=== PATIENT | female | born 1980 ===

== ENCOUNTER 2018-04-05 11:32 | Inpatient (IN) | payer OTHER, SELFPAY ==
[2018-04-05 11:37] VITALS: BMI 24.6
[2018-04-05] MEDS ORDERED: Morphine 4 mg/ml ISec IVP STA ×2 (12:04→14:23)
[2018-04-05] MEDS: Sodium Chloride 0.9% 1,000 ML IV SCH ×2 (12:21→18:08)
[2018-04-05 12:22] LABS: BASO # 0.01 K/mm3 (0.0-2.0); BASO % 0.1 % (0.0-3.0); GRAN # 13.21 (1.4-6.5); GRAN % 90.5 % (50.0-68.0); HEMOGLOBIN 14.9 g/dL (12.0-16.0); LYMPH # 0.9 (1.2-3.4); LYMPH % 6.2 % (22.0-35.0); MEAN CELL VOLUME 97.7 fl (80.0-105.0); MEAN CORPUSCULAR HEMOGLOBIN 34.7 pg (25.0-35.0); MEAN CORPUSCULAR HGB CONC 35.5 g/dl (31.0-37.0); MEAN PLATELET VOLUME 9.7 fl (7.0-11.0); MONO # 0.5 (0.1-0.6); MONO % 3.2 % (1.0-6.0); PLATELET COUNT 247 10^3/uL (120.0-450.0); RED CELL DISTRIBUTION WIDTH 13.1 % (11.5-14.5); WHITE BLOOD COUNT 14.6 10^3/ul (4.5-11.0)
--- NOTE | 2018-04-05 12:24 | ED PDOC ---
Arrival/HPI - General Chief Complaint: Abdominal Pain Time Seen by Provider: 04/05/18 12:02 Historian: Patient, Family (Daughter translated for patient ) - History of Present Illness Narrative History of Present Illness (Text): 04/05/18 12:03 38 year old female, with past medical history of appendectomy, presents to the emergency department accompanied by family with severe epigastric pain, vomiting , and diarrhea, since last night. Daughter is at bedside translating. Patient states worsening symptoms with radiation of pain throughout abdomen when vomiting. Patient states multiple episodes of vomiting and diarrhea since 1am this morning. Patient denies any headache, dizziness, fever, sweats, shortness of breath, cough, chest pain, or any other complaints. Time/Duration: 24 hours (Pain began last night) Symptom Onset: Gradual Symptom Course: Unchanged Quality: Aching Severity Level: Moderate Activities at Onset: Light Context: Home Past Medical History - Provider Review Nursing Documentation Reviewed: Yes - Infectious Disease Hx of Infectious Diseases: None - Psychiatric Hx Substance Use: No - Surgical History Hx Appendectomy: Yes Hx Section: Yes Family/Social History - Physician Review Nursing Documentation Reviewed: Yes Family/Social History: No Known Family HX Smoking Status: Never Smoked Hx Alcohol Use: No Hx Substance Use: No Allergies/Home Meds Allergies/Adverse Reactions: Allergies No Known Allergies Allergy (Verified 04/05/18 11:37) Home Medications: Home Meds Medication Instructions Recorded Confirmed No Known Home Med 04/05/18 04/05/18 Review of Systems - Physician Review All systems were reviewed & negative as marked: Yes - Review of Systems Constitutional: absent: Fevers, Night Sweats Respiratory: absent: SOB, Cough Cardiovascular: absent: Chest Pain Gastrointestinal: Abdominal Pain (Epigastric abdominal pain), Diarrhea, Vomiting (Multiple episodes since last night) Neurological: absent: Headache, Dizziness Physical Exam - Physical Exam Narrative Physical Exam (Text): 04/05/18 12:03 Gen: VS reviewed, alert, well developed, well nourished, nontoxic, moderate to severe distress ENT: normal pharynx Eye: EOMI, PERRL Neck: no JVD, supple, no adenopathy CV: regular rate, regular rhythm, no rubs,no murmur, no gallops, S1, S2, pulses equal and strong Pulm: no distress, clear to auscultation, no wheeze, no rhonchi, breath sounds equal, no rales Abd: severe epigastric tenderness, with guarding, no rebound, no rigidity Ext: no edema Skin: good color, no rash, no cyanosis Psych: responds appropriately to questions, normal affect Neuro: oriented x3, CN2-12 intact grossly, motor intact, sensation intact Vital Signs Reviewed: Yes Vital Signs Temp Pulse Pulse Resp BP Pulse Ox 04/05/18 16:11 97.7 F 66 66 18 147/80 04/05/18 15:00 98 F 78 18 136/79 98 04/05/18 13:32 66 18 147/80 98 04/05/18 11:32 97.7 F 70 18 129/77 99 Temperature: Afebrile Blood Pressure: Normal Pulse: Regular Respiratory Rate: Normal Appearance: Positive for: Well-Appearing, Non-Toxic, Comfortable Pain Distress: None Mental Status: Positive for: Alert and Oriented X 3 Medical Decision Making ED Course and Treatment: 04/05/18 12:49 Impression: 38 year old female presents to the emergency department with severe epigastric abdominal pain. Plan: -- EKG -- Labs -- US of gallbladder and pancreas -- Morphine -- Zofran -- Reassess and disposition Progress Notes: 04/05/18 13:34 patient seen for acute severe epigastric pain, will initiate workup for biliary colic, if US negative will follow up with CT 04/05/18 14:32 case discussed with medical surgical tech and will see pt in consultation 04/05/18 14:[address] Mitchell, who is aware and agrees with Emergency Department management plan, accepts patient under her service. - Lab Interpretations Lab Results: 04/05/18 12:00 04/05/18 12:00 Lab Results 04/05/18 12:00: Sodium 144, Potassium 3.7, Chloride 106, Carbon Dioxide 22, Anion Gap 20, BUN 14, Creatinine 0.5 L, Est GFR ( Amer) > 60, Est GFR ( Non-Af Amer) > 60, Random Glucose 131 H, Calcium 9.4, Total Bilirubin 0.9, AST 27, ALT 34, Alkaline Phosphatase 62, Total Protein 8.4 H, Albumin 4.7, Globulin 3.7, Albumin/Globulin Ratio 1.2, Lipase 63 04/05/18 12:00: WBC 14.6 H, RBC 4.30, Hgb 14.9, Hct 42.0, MCV 97.7, MCH 34.7, MCHC 35.5, RDW 13.1, Plt Count 247, MPV 9.7, Gran % 90.5 H, Lymph % (Auto) 6.2 L , [place] % (Auto) 3.2, Eos % (Auto) 0.0 L, Baso % (Auto) 0.1, Gran # 13.21 H, Lymph # (Auto) 0.9 L, [place] # (Auto) 0.5, Eos # (Auto) 0.0, Baso # (Auto) 0.01, Neutrophils % (Manual) 92 H, Lymphocytes % (Manual) 6 L, Monocytes % (Manual) 2 , Platelet Evaluation Normal, Anisocytosis (manual) Slight - RAD Interpretation Narrative RAD Interpretations (Text): 04/05/18 14:14 US of gallbladder and pancreas reviewed by radiologist, shows: Cholelithiasis, presumptive evidence for acute cholecystitis. Radiology Orders: 04/05/18 12:04 GALLBLADDER & PANCREAS [US] Stat Medical Examiner: Radiologist - EKG Interpretation EKG Interpretation (Text): 04/05/18 15:15 sinus rhythm at 70 bpm, nml qrs, nml axis, no acute sttw abn Interpreted by ED Physician: Yes - Medication Orders Current Medication Orders: Sodium Chloride (Sodium Chloride 0.9%) 1,000 mls @ 150 mls/hr IV .Q6H40M ESHA Last Admin: 04/05/18 18:08 Dose: 150 mls/hr eMAR Start Stop Document 04/05/18 18:08 LEYDA (Rec: 04/05/18 18:08 LEYDA [id number]) Intravenous Solution Start Date 04/05/18 Start Time 18:08 Cefoxitin Sodium 1 gm/ Sodium (Chloride) 100 mls @ 100 mls/hr IV Q8H ESHA PRN Reason: Protocol Stop: 04/08/18 22:01 Metronidazole (Flagyl) 500 mg in 100 mls @ 100 mls/hr IVPB Q8 ESHA PRN Reason: Protocol Stop: 04/08/18 22:01 Lactated Ringer's (Lactated Ringer's) 1,000 mls @ 100 mls/hr IV .Q10H [facility] Stop: 04/08/18 15:16 Last Admin: 04/05/18 15:21 Dose: 100 mls/hr eMAR Start Stop Document 04/05/18 15:21 EWO (Rec: 04/05/18 15:21 EWO [id number]) Intravenous Solution Start Date 04/05/18 Start Time 15:21 Morphine Sulfate (Morphine) 4 mg IVP Q4H PRN PRN Reason: Pain, moderate (4-7) Last Admin: 04/05/18 20:14 Dose: 4 mg MAR Pain Assessment Document 04/05/18 20:14 [facility] (Rec: 04/05/18 20:15 [id number]) Pain Reassessment Is this a pain reassessment? No Sleep Is patient sleeping during reassessment? No Presence of Pain Presence of Pain Yes Pain Scale Used Pain Scale Used Numeric Location Upper or Lower Upper Pain Location Body Site Abdomen Description Description Intermittent Intensity of Pain at present 7 Pain Behavior Facial Grimacing Alleviating Factors/Management Medication Techniques Alleviating Factors Medication IVP Administration Document 04/05/18 20:14 [facility] (Rec: 04/05/18 20:15 [id number]) Charges for Administration # of IVP Administrations 1 Ondansetron HCl (Zofran Inj) 4 mg IVP Q4H PRN PRN Reason: Nausea/Vomiting Last Admin: 04/05/18 20:15 Dose: 4 mg IVP Administration Document 04/05/18 20:15 [facility] (Rec: 04/05/18 20:15 [id number]) Charges for Administration # of IVP Administrations 1 Discontinued Medications Ampicillin Sodium/Sulbactam (Sodium 3 gm/ Sodium Chloride) 100 mls @ 100 mls/ hr IVPB STAT STA PRN Reason: Protocol Stop: 04/05/18 15:14 Last Admin: 04/05/18 15:21 Dose: 100 mls/hr eMAR Start Stop Document 04/05/18 15:21 EWO (Rec: 04/05/18 15:21 EWO [id number]) Intravenous Solution Start Date 04/05/18 Start Time 15:21 End Date 04/05/18 End time 16:21 Total Infusion Time 60 Morphine Sulfate (Morphine) 4 mg IVP STAT STA Stop: 04/05/18 12:05 Last Admin: 04/05/18 12:22 Dose: 4 mg MAR Pain Assessment Document 04/05/18 12:22 EWO (Rec: 04/05/18 12:22 EWO [id number]) Pain Reassessment Is this a pain reassessment? No Sleep Is patient sleeping during reassessment? No Presence of Pain Presence of Pain Yes Pain Scale Used Pain Scale Used Numeric Location Pain Location Body Site Abdomen Description Description Constant Intensity of Pain at present 7 IVP Administration Document 04/05/18 12:22 EWO (Rec: 04/05/18 12:22 EWO [id number]) Charges for Administration # of IVP Administrations 1 Re-Assess: [facility] Pain Assessment Document 04/05/18 13:22 EWO (Rec: 04/05/18 15:22 EWO [id number]) Pain Reassessment Is this a pain reassessment? Yes Sleep Is patient sleeping during reassessment? No Presence of Pain Presence of Pain Yes Location Pain Location Body Site Abdomen Description Description Intermittent Intensity of Pain at present 6 Morphine Sulfate (Morphine) 4 mg IVP STAT STA Stop: 04/05/18 14:24 Last Admin: 04/05/18 15:20 Dose: 4 mg [facility] Pain Assessment Document 04/05/18 15:20 EWO (Rec: 04/05/18 15:21 EWO [id number]) Pain Reassessment Is this a pain reassessment? Yes Sleep Is patient sleeping during reassessment? No Presence of Pain Presence of Pain Yes Location Pain Location Body Site Abdomen Description Description Intermittent Intensity of Pain at present 6 IVP Administration Document 04/05/18 15:20 EWO (Rec: 04/05/18 15:21 O [id number]) Charges for Administration # of IVP Administrations 2 Ondansetron HCl (Zofran Inj) 4 mg IVP STAT STA Stop: 04/05/18 12:16 Last Admin: 04/05/18 12:22 Dose: 4 mg IVP Administration Document 04/05/18 12:22 EWO (Rec: 04/05/18 12:22 [facility] [id number]) Charges for Administration # of IVP Administrations 1 Pneumococcal Polyvalent Vaccine (Pneumovax 23 Vaccine) 0.5 ml IM .ONCE ONE Stop: 04/05/18 16:26 - Scribe Statement The provider has reviewed the documentation as recorded by the Scribbruce Harmon with [facility] All medical record entries made by the Scribe were at my direction and personally dictated by me. I have reviewed the chart and agree that the record accurately reflects my personal performance of the history, physical exam, medical decision making, and the department course for this patient. I have also personally directed, reviewed, and agree with the discharge instructions and disposition. Disposition/Present on Arrival - Present on Arrival Any Indicators Present on Arrival: No History of DVT/PE: No History of Uncontrolled Diabetes: No Urinary Catheter: No History of Decub. Ulcer: No History Surgical Site Infection Following: None - Disposition Have Diagnosis and Disposition been Completed?: Yes Diagnosis: Cholecystitis, acute with cholelithiasis Disposition: HOSPITALIZED Disposition Time: 14:41 Patient Plan: Admission Patient Problems: Current Active Problems Problem Status Onset Cholecystitis, acute with cholelithiasis Acute Condition: GOOD
[2018-04-05 12:26] LABS: ALB/GLOB RATIO 1.2 (1.1-1.8); ALBUMIN 4.7 g/dL (3.0-4.8); ALT/SGPT 34 U/L (7-56); AST/SGOT 27 U/L (14-36); BLOOD UREA NITROGEN 14 mg/dL (7-21); CALCIUM 9.4 mg/dL (8.4-10.5); GFR AFRICAN-AMERICAN > 60; GFR NON-AFRICAN AMERICAN > 60; LIPASE 63 U/L (23-300)
[2018-04-05 13:38] LABS: NEUTROPHIL 92 % (50.0-70.0)
[2018-04-05 13:39] LABS: LYMPHOCYTE 6 % (22.0-35.0); MONOCYTE 2 % (1.0-6.0); PLATELET ESTIMATE NORMAL (NORMAL)
[2018-04-05 13:40] LABS: ANISOCYTOSIS SLIGHT
--- NOTE | 2018-04-05 14:00 | US ---
Date of service: 04/05/2018 HISTORY: pain, ?gallstones COMPARISON: None. TECHNIQUE: Sonographic evaluation of the right upper quadrant of the abdomen. FINDINGS: LIVER: Measures 13.3 cm in length. Patent portal vein. Portal venous flow: Hepatopetal. Unremarkable echogenicity of the liver parenchyma. No mass. No intrahepatic bile duct dilatation. GALLBLADDER: Multiple gallstones including a large stone lodged in the neck of the gallbladder. Positive sonographic Bourgeois's sign. Trace pericholecystic fluid. COMMON BILE DUCT: Measures 2.7 mm. No stones. No dilatation. PANCREAS: Unremarkable as visualized. No mass. No ductal dilatation. RIGHT KIDNEY: Measures 4.7 x 10.6 cm in length. Normal echogenicity. No calculus, mass, or hydronephrosis. AORTA: No aneurysmal dilatation. IVC: Unremarkable. OTHER FINDINGS: None . IMPRESSION: Cholelithiasis, presumptive evidence for acute cholecystitis.
[2018-04-05] MEDS ORDERED: Morphine 2 mg/ml ISec IVP PRN (15:07)
[2018-04-05] MEDS: Lactated Ringer's 1,000 ML IV SCH (15:21)
--- NOTE | 2018-04-05 15:21 | CP.PCM.HP ---
History of Present Illness - History of Present Illness History of Present Illness: Surgery: Dr. Mitchell Pt is a 38F with no significant PMHx who presents to [facility] with complaints of abdominal pain & N/V x 1 day. Pt states she has had this pain on/off for the past year, however it has never been this bad in the past. Pt states this episode started last night with epigastric pain associated with several episodes of non-bloody vomiting. Pt denies any exacerbating/alleviating factors. Admits to subjective fevers/chills at home. In the ER, pt had an US of her RUQ which shows GB with multiple stones, pericholecystic fluid & + sonographic quevedo's sign, consistent with acute cholecystitis. Surgery called to evaluate. Currently, pt is resting comfortably in bed. States her pain is still the same but N/V has improved. She denies chest pain or SOB. PMHx: denies PSHx: appendectomy, SocialHx: denies smoking, EtOH/drugs NKDA Present on Admission - Present on Admission Any Indicators Present on Admission: No Review of Systems - Review of Systems All systems: reviewed and no additional remarkable complaints except (as per HPI ) Past Patient History - Infectious Disease Hx of Infectious Diseases: None - Past Social History Smoking Status: Never Smoked - PSYCHIATRIC Hx Substance Use: No - SURGICAL HISTORY Hx Appendectomy: Yes Hx Section: Yes - ANESTHESIA Hx Anesthesia: Yes Hx Anesthesia Reactions: No Meds Allergies/Adverse Reactions: Allergies Allergy/AdvReac Type Severity Reaction Status Date / Time No Known Allergies Allergy Verified 04/05/18 11:37 Physical Exam - Constitutional Appears: Well, No Acute Distress - Head Exam Head Exam: ATRAUMATIC, NORMOCEPHALIC - Eye Exam Eye Exam: Normal appearance - ENT Exam ENT Exam: Mucous Membranes Moist - Respiratory Exam Respiratory Exam: NORMAL BREATHING PATTERN - Cardiovascular Exam Cardiovascular Exam: RRR - GI/Abdominal Exam GI & Abdominal Exam: Soft, Tenderness (epigastrium ). absent: Distended, Guarding, Rebound Results - Vital Signs Recent Vital Signs: Last Vital Signs Temp 97.7 F 04/05/18 11:32 Pulse 66 04/05/18 13:32 Resp 18 04/05/18 13:32 BP 147/80 04/05/18 13:32 Pulse Ox 98 04/05/18 13:32 - Labs Result Diagrams: 04/05/18 12:00 04/05/18 12:00 - Imaging and Cardiology US - abdomen Status: Image reviewed by me, Report reviewed by me Assessment & Plan - Assessment and Plan (Free Text) Assessment: 38F with acute cholecystitis Plan: - admit to the hospital - IVF & IV ABX - CLD ok, will make NPO prior to OR - d/w Dr. Stephen Johnson
[2018-04-05] MEDS ORDERED: Pneumococcal 23-Valent Vaccine IM ONE (16:25)
[2018-04-05] MEDS: Morphine 4 mg/ml ISec IVP PRN (20:14)
[2018-04-05] MEDS: metroNIDAZOLE IV 500 mg/100 ml 500 MG/100 ML BAG IVPB SCH (21:28)
[2018-04-05] MEDS: cefOXitin Sodium 1 GM in Sodium Chloride 0.9% 100 ML IV SCH (23:17)
[2018-04-06] MEDS: metroNIDAZOLE IV 500 mg/100 ml 500 MG/100 ML BAG IVPB SCH ×3 (06:13→21:15)
[2018-04-06 07:02] LABS: BASO # 0.02 K/mm3 (0.0-2.0); BASO % 0.2 % (0.0-3.0); EOS # 0.1 (0.0-0.7); EOS % 0.8 % (1.5-5.0); GRAN # 7.53 (1.4-6.5); GRAN % 74.7 % (50.0-68.0); HEMOGLOBIN 12.7 g/dL (12.0-16.0); LYMPH # 1.4 (1.2-3.4); LYMPH % 14.2 % (22.0-35.0); MEAN CELL VOLUME 98.4 fl (80.0-105.0); MEAN CORPUSCULAR HGB CONC 34.5 g/dl (31.0-37.0); MEAN PLATELET VOLUME 9.7 fl (7.0-11.0); MONO % 10.1 % (1.0-6.0); RBC 3.74 10^6/uL (3.5-6.1); RED CELL DISTRIBUTION WIDTH 13.2 % (11.5-14.5); WHITE BLOOD COUNT 10.1 10^3/ul (4.5-11.0)
[2018-04-06] MEDS: cefOXitin Sodium 1 GM in Sodium Chloride 0.9% 100 ML IV SCH ×3 (07:03→21:15)
--- NOTE | 2018-04-06 07:13 | CP.PCM.PN ---
Subjective - Date & Time of Evaluation Date of Evaluation: 04/06/18 Time of Evaluation: 06:26 - Subjective Subjective: Surgery: Dr. Mitchell Pt seen and examined. No acute overnight events. Pt states abdominal pain has improved since admission but still present. Admits to one episode of vomiting overnight. Denies F/C. Objective - Vital Signs/Intake and Output Vital Signs (last 24 hours): Temp Pulse Resp BP Pulse Ox 97.5 F L 59 L 18 105/73 97 04/05/18 22:14 04/05/18 22:14 04/05/18 22:14 04/05/18 22:14 04/05/18 22:14 Intake and Output: 04/05/18 04/06/18 18:59 06:59 Intake Total 420 Balance 420 - Medications Medications: Current Medications Sodium Chloride (Sodium Chloride 0.9%) 1,000 mls @ 150 mls/hr IV .Q6H40M ESHA Last Admin: 04/05/18 18:08 Dose: 150 mls/hr Cefoxitin Sodium 1 gm/ Sodium (Chloride) 100 mls @ 100 mls/hr IV Q8H ESHA PRN Reason: Protocol Stop: 04/08/18 22:01 Last Admin: 04/05/18 23:17 Dose: 100 mls/hr Metronidazole (Flagyl) 500 mg in 100 mls @ 100 mls/hr IVPB Q8 ESHA PRN Reason: Protocol Stop: 04/08/18 22:01 Last Admin: 04/06/18 06:13 Dose: 100 mls/hr Lactated Ringer's (Lactated Ringer's) 1,000 mls @ 100 mls/hr IV .Q10H [facility] Stop: 04/08/18 15:16 Last Admin: 04/05/18 15:21 Dose: 100 mls/hr Morphine Sulfate (Morphine) 4 mg IVP Q4H PRN PRN Reason: Pain, moderate (4-7) Last Admin: 04/05/18 20:14 Dose: 4 mg Ondansetron HCl (Zofran Inj) 4 mg IVP Q4H PRN PRN Reason: Nausea/Vomiting Last Admin: 04/05/18 20:15 Dose: 4 mg - Constitutional Appears: Well, No Acute Distress - Head Exam Head Exam: ATRAUMATIC, NORMOCEPHALIC - Eye Exam Eye Exam: Normal appearance - ENT Exam ENT Exam: Mucous Membranes Moist - Respiratory Exam Respiratory Exam: NORMAL BREATHING PATTERN - Cardiovascular Exam Cardiovascular Exam: RRR - GI/Abdominal Exam GI & Abdominal Exam: Soft, Tenderness (RUQ/epigastric region ). absent: Distended, Rebound - Neurological Exam Neurological Exam: Alert, Awake, Oriented x3 - Skin Skin Exam: Dry, Warm Assessment and Plan - Assessment and Plan (Free Text) Assessment: 38F with acute cholecystitis Plan: - plan for OR tomorrow - NPO past midnight - continue IV ABX & pain meds - d/w Dr. Stephen Johnson
[2018-04-06 07:24] LABS: ALB/GLOB RATIO 1.1 (1.1-1.8); ALBUMIN 3.4 g/dL (3.0-4.8); ALT/SGPT 29 U/L (7-56); AST/SGOT 24 U/L (14-36); BLOOD UREA NITROGEN 8 mg/dL (7-21); CALCIUM 8.5 mg/dL (8.4-10.5); GFR AFRICAN-AMERICAN > 60; GFR NON-AFRICAN AMERICAN > 60
[2018-04-06] MEDS ORDERED: Potassium Chloride 20 mEq ER Tab PO ONE (09:06)
--- NOTE | 2018-04-06 12:57 | CARD ---
APPROVED REPORT Date of service: 04/05/2018 EKG Measurement Heart [id number] <Conclusion> Normal sinus rhythm Normal ECG
[2018-04-06] MEDS: Lactated Ringer's 1,000 ML IV SCH (21:15)
[2018-04-07] MEDS: metroNIDAZOLE IV 500 mg/100 ml 500 MG/100 ML BAG IVPB SCH (05:26)
[2018-04-07] MEDS: cefOXitin Sodium 1 GM in Sodium Chloride 0.9% 100 ML IV SCH (05:26)
[2018-04-07 06:45] LABS: BASO # 0.02 K/mm3 (0.0-2.0); BASO % 0.2 % (0.0-3.0); EOS # 0.2 (0.0-0.7); EOS % 2.3 % (1.5-5.0); GRAN # 6.89 (1.4-6.5); GRAN % 73.2 % (50.0-68.0); HEMOGLOBIN 13.5 g/dL (12.0-16.0); LYMPH # 1.5 (1.2-3.4); LYMPH % 16.3 % (22.0-35.0); MEAN CORPUSCULAR HEMOGLOBIN 34.7 pg (25.0-35.0); MEAN CORPUSCULAR HGB CONC 35.1 g/dl (31.0-37.0); MEAN PLATELET VOLUME 9.7 fl (7.0-11.0); MONO # 0.8 (0.1-0.6); RBC 3.89 10^6/uL (3.5-6.1); RED CELL DISTRIBUTION WIDTH 13.4 % (11.5-14.5); WHITE BLOOD COUNT 9.4 10^3/ul (4.5-11.0)
[2018-04-07 07:13] LABS: INR 1.09 (0.93-1.08); PARTIAL THROMBOPLASTIN TIME 25.9 Seconds (25.1-36.5); PROTHROMBIN TIME 12.6 SECONDS (9.4-12.5)
[2018-04-07 07:26] LABS: ALB/GLOB RATIO 1.2 (1.1-1.8); ALBUMIN 3.6 g/dL (3.0-4.8); ALT/SGPT 25 U/L (7-56); AST/SGOT 22 U/L (14-36); BLOOD UREA NITROGEN 9 mg/dL (7-21); CALCIUM 8.7 mg/dL (8.4-10.5); GFR AFRICAN-AMERICAN > 60; GFR NON-AFRICAN AMERICAN > 60
[2018-04-07] MEDS ORDERED: Rocuronium 10 mg/ml (5 ml) ONE (11:04)
[2018-04-07] MEDS ORDERED: Midazolam 2 MG/2 ML VIAL ONE (11:04)
[2018-04-07] MEDS ORDERED: Propofol 10 mg/ml Inj (20 ML) ONE (11:04)
[2018-04-07] MEDS ORDERED: Neostigmine Methylsulfate 3mg/3ml Syringe IV ONE (12:28)
[2018-04-07] MEDS ORDERED: Bupivacaine 0.5% Inj(30mL) ONE (12:32)
[2018-04-07] MEDS ORDERED: HYDROmorphone 0.5 mg/0.5 ml ISec IVP PRN (12:55)
[2018-04-07] MEDS ORDERED: Lactated Ringer's 1,000 ML IV SCH (13:00)
[2018-04-07] MEDS ORDERED: Oxycodone/Acetaminophen 5/325 mg Tab PO PRN (13:05)
--- NOTE | 2018-04-07 13:07 | PCM.SURG1 ---
Surgeon's Initial Post Op Note - Surgeon's Notes Surgeon: Dr. Mitchell Plaster Pattern Caster: Dr. Johnson PGY-3 Type of Anesthesia: General Endo Anesthesia Administered By: Dr. Guerrero Pre-Operative Diagnosis: Acute Cholecystitis Operative Findings: See oeprative report Post-Operative Diagnosis: Same Operation Performed: Laparoscopic Cholecystectomy Specimen/Specimens Removed: Gallbladder Estimated Blood Loss: EBL {In ML}: 10 Blood Products Given: N/A Drains Used: No Drains Post-Op Condition: Good Date of Surgery/Procedure: 04/07/18 Time of Surgery/Procedure: 13:07
[2018-04-07] MEDS: Lactated Ringer's 1,000 ML IV SCH (14:29)
[2018-04-07] MEDS: Morphine 4 mg/ml ISec IVP PRN (14:29)
[2018-04-07 23:18] VITALS: RESP 18
[2018-04-08] MEDS: Lactated Ringer's 1,000 ML IV SCH (04:11)
[2018-04-08 07:19] LABS: BASO # 0.02 K/mm3 (0.0-2.0); BASO % 0.3 % (0.0-3.0); EOS # 0.2 (0.0-0.7); EOS % 2.2 % (1.5-5.0); GRAN # 4.6 (1.4-6.5); GRAN % 64.5 % (50.0-68.0); HEMOGLOBIN 11.8 g/dL (12.0-16.0); LYMPH # 1.7 (1.2-3.4); LYMPH % 24.3 % (22.0-35.0); MEAN CELL VOLUME 99.4 fl (80.0-105.0); MEAN CORPUSCULAR HEMOGLOBIN 34.3 pg (25.0-35.0); MEAN CORPUSCULAR HGB CONC 34.5 g/dl (31.0-37.0); MEAN PLATELET VOLUME 9.4 fl (7.0-11.0); MONO # 0.6 (0.1-0.6); MONO % 8.7 % (1.0-6.0); RBC 3.44 10^6/uL (3.5-6.1); RED CELL DISTRIBUTION WIDTH 13.6 % (11.5-14.5); WHITE BLOOD COUNT 7.1 10^3/ul (4.5-11.0)
[2018-04-08 07:31] LABS: ALT/SGPT 36 U/L (7-56); AST/SGOT 47 U/L (14-36); BLOOD UREA NITROGEN 9 mg/dL (7-21); CALCIUM 8.6 mg/dL (8.4-10.5); GFR AFRICAN-AMERICAN > 60; GFR NON-AFRICAN AMERICAN > 60
[2018-04-08 07:34] VITALS: BP 104/57; PULSE 64; TEMP 98.7; O2SAT 96
--- NOTE | 2018-04-08 10:04 | CP.PCM.DIS ---
Provider - Provider Date of Admission: 04/05/18 14:41 Attending physician: Michael Mitchell MD Primary care physician: NO PRIMARY CARE PROVIDER Time Spent in preparation of Discharge (in minutes): 10 Diagnosis - Discharge Diagnosis (1) Cholecystitis, acute with cholelithiasis Status: Resolved Hospital Course - Lab Results Lab Results: Micro Results 04/05/18 15:15 Blood-Venous Blood Culture - Preliminary NO GROWTH AFTER 48 HOURS Most Recent Lab Values WBC 7.1 10^3/ul (4.5-11.0) D 04/08/18 06:30 RBC 3.44 10^6/uL (3.5-6.1) L 04/08/18 06:30 Hgb 11.8 g/dL (12.0-16.0) L 04/08/18 06:30 Hct 34.2 % (36.0-48.0) L 04/08/18 06:30 MCV 99.4 fl (80.0-105.0) 04/08/18 06:30 MCH 34.3 pg (25.0-35.0) 04/08/18 06:30 MCHC 34.5 g/dl (31.0-37.0) 04/08/18 06:30 RDW 13.6 % (11.5-14.5) 04/08/18 06:30 Plt Count 186 10^3/uL (120.0-450.0) 04/08/18 06:30 MPV 9.4 fl (7.0-11.0) 04/08/18 06:30 Gran % 64.5 % (50.0-68.0) 04/08/18 06:30 Lymph % (Auto) 24.3 % (22.0-35.0) 04/08/18 06:30 [place] % (Auto) 8.7 % (1.0-6.0) H 04/08/18 06:30 Eos % (Auto) 2.2 % (1.5-5.0) 04/08/18 06:30 Baso % (Auto) 0.3 % (0.0-3.0) 04/08/18 06:30 Gran # 4.60 (1.4-6.5) 04/08/18 06:30 Lymph # (Auto) 1.7 (1.2-3.4) 04/08/18 06:30 [place] # (Auto) 0.6 (0.1-0.6) 04/08/18 06:30 Eos # (Auto) 0.2 (0.0-0.7) 04/08/18 06:30 Baso # (Auto) 0.02 K/mm3 (0.0-2.0) 04/08/18 06:30 Neutrophils % (Manual) 92 % (50.0-70.0) H 04/05/18 12:00 Lymphocytes % (Manual) 6 % (22.0-35.0) L 04/05/18 12:00 Monocytes % (Manual) 2 % (1.0-6.0) 04/05/18 12:00 Platelet Evaluation Normal (NORMAL) 04/05/18 12:00 Anisocytosis (manual) Slight 04/05/18 12:00 PT 12.6 SECONDS (9.4-12.5) H 04/07/18 06:10 INR 1.09 (0.93-1.08) H 04/07/18 06:10 APTT 25.9 Seconds (25.1-36.5) 04/07/18 06:10 Sodium 142 mmol/L (132-148) 04/08/18 06:30 Potassium 3.7 mmol/L (3.6-5.0) 04/08/18 06:30 Chloride 108 mmol/L (98-107) H 04/08/18 06:30 Carbon Dioxide 26 mmol/L (21-33) 04/08/18 06:30 Anion Gap 11 (10-20) 04/08/18 06:30 BUN 9 mg/dL (7-21) 04/08/18 06:30 Creatinine 0.6 mg/dl (0.7-1.2) L 04/08/18 06:30 Est GFR ( Amer) > 60 04/08/18 06:30 Est GFR (Non-Af Amer) > 60 04/08/18 06:30 Random Glucose 98 mg/dL (70-110) 04/08/18 06:30 Lactic Acid 1.4 mmol/L (0.7-2.1) 04/05/18 15:24 Calcium 8.6 mg/dL (8.4-10.5) 04/08/18 06:30 Phosphorus 2.7 mg/dL (2.5-4.5) 04/08/18 06:30 Magnesium 2.2 mg/dL (1.7-2.2) 04/08/18 06:30 Total Bilirubin 1.0 mg/dL (0.2-1.3) 04/08/18 06:30 AST 47 U/L (14-36) H D 04/08/18 06:30 ALT 36 U/L (7-56) 04/08/18 06:30 Alkaline Phosphatase 49 U/L (38-126) 04/08/18 06:30 Total Protein 5.9 g/dL (5.8-8.3) 04/08/18 06:30 Albumin 3.0 g/dL (3.0-4.8) 04/08/18 06:30 Globulin 3.0 gm/dL 04/08/18 06:30 Albumin/Globulin Ratio 1.0 (1.1-1.8) L 04/08/18 06:30 Lipase 63 U/L (23-300) 04/05/18 12:00 Blood Type O POSITIVE 04/05/18 15:00 Blood Type Confirm O POSITIVE 04/05/18 15:30 Antibody Screen Negative 04/05/18 15:00 BBK History Checked No verified bt 04/05/18 15:00 - Hospital Course Hospital Course: Pt is a 38F with no PMHx who presented to [facility] with complaints of abdominal pain & N/V. In the ER, pt had an US of the RUQ which showed GB with stones & +Bourgeois' s sign. Pt was admitted to the hospital, started on IV ABX and taken to the OR for lap ino. Pt tolerated the procedure well and was started on a diet post- op. This morning pt is feeling well and is clear for DC home. Will f/u with Dr. Mitchell in 1-2 weeks. Discharge Exam - Head Exam Head Exam: ATRAUMATIC, NORMOCEPHALIC - Eye Exam Eye Exam: Normal appearance - ENT Exam ENT Exam: Mucous Membranes Moist - Respiratory Exam Respiratory Exam: NORMAL BREATHING PATTERN - Cardiovascular Exam Cardiovascular Exam: RRR - GI/Abdominal Exam GI & Abdominal Exam: Soft, Tenderness (around umbilical incision, dermabond in place C/D/I ). absent: Distended - Neurological Exam Neurological exam: Alert, Oriented x3 - Skin Skin Exam: Dry, Warm Discharge Plan - Follow Up Plan Condition: GOOD Disposition: HOME/ ROUTINE Patient education suggested?: Yes Instructions: Cholecystitis (DC), Cholecystitis (GEN) Additional Instructions: f/u with Dr. Mitchell in 1-2 weeks. Ok to shower, no heavy lifting >15lbs for 4-6 weeks. Keeps incisions clean. Resume regular diet. Referrals: PCP,NO [Primary Care Provider] -
--- NOTE | 2018-04-08 21:20 | OP ---
Copied To: Michael Mitchell MD Attending MD: Michael Mitchell MD. PROCEDURE DATE: 04/07/2018 SURGEON: Michael Mitchell MD. HARDWARE ENGINEERING MANAGER: Jadyn Johnson DO. TYPE OF ANESTHESIA: General. ANESTHESIA ADMINISTERED BY: . PREOPERATIVE DIAGNOSIS: Acute cholecystitis. POSTOPERATIVE DIAGNOSIS: Acute cholecystitis PROCEDURE: Laparoscopic cholecystectomy. DESCRIPTION OF OPERATION: With the patient in the supine position under adequate general anesthesia, the abdomen was prepped and draped in the usual sterile manner. Veress needle puncture was performed at the umbilicus with insufflation to 15 cm water pressure of CO2 and a 10 mm laparoscopic trocar was inserted via an infraumbilical incision. Under direct vision, additional trocars were inserted in the epigastrium and right costal margin. The gallbladder was visualized. It was firmly, but not tensely distended and 50 mL of dark green bile were aspirated, allowing me fundus to be grasped and elevated. Acute omental adhesions were taken down from the peritoneal surface of the gallbladder and sharply divided from the liver, allowing the gallbladder infundibulum to be visualized. The infundibulum was grasped and retracted laterally. Cystic duct was identified and dissected. Cystic duct was cleared down towards the junction with the common bile duct. Cystic duct was triply clipped and divided. The cystic artery was identified and dissected and anterior and posterior branches were each triply clipped and divided. The gallbladder was then dissected free of the liver bed. The liver bed was edematous consistent with acute cholecystitis and there was suggestion of early gangrene of the gallbladder as well. The liver bed was inspected for hemostasis and the dissection was completed. The gallbladder was placed in a specimen retrieval bag and removed via the umbilical port site, which was enlarged somewhat to allow removal of the large stone. The right upper quadrant was irrigated and suctioned. Pneumoperitoneum was released and the trocars were removed. The umbilical port site was closed longitudinally with bhoxwi-cu-ldniy sutures of 0 Vicryl. All incisions were closed with 4-0 Monocryl subcuticular sutures and Steri-Strips. Dry sterile dressings were applied. The patient tolerated the procedure well and transferred to recovery room in stable condition. Estimated blood loss for the procedure was 10 mL. Michael Mitchell MD [facility] # [id number]
== END 2018-04-08 14:02 | disposition home or self-care (01) | DRG 494 ==
LOC: ED 11:32 → ERH 14:41 → 5RNO 16:35
PROVIDERS: ADMIT Specialist; ATTEND Specialist
PROC: 0FT44ZZ Resection of Gallbladder, Percutaneous Endoscopic Approach (ICD-10-PCS; principal; 2018-04-07 11:15)
DX: K80.12 Calculus of gallbladder with acute and chronic cholecystitis without obstruction (principal)